=== PATIENT | male | born 1975 | race Caucasian/White ===

== ENCOUNTER 2023-09-21 14:22 | Outpatient (AMB) | payer OTHER, SELFPAY ==
--- NOTE | 2023-09-21 14:26 | MHC.PC.OV ---
Vital Signs 09/21/23 14:29 Height 6 ft 2 in Weight 227 lb BMI 29.1 BP 150/100 H Blood Pressure Location Rt brachial Position Sitting Pulse 78 Pulse Source Pulse Oximeter Pulse Oximetry (%) 98 Oxygen Delivery Method Room Air Intake Visit Reasons: New patient-Requesting physical Intake Note: Patient here to establish care and have a physical exam. he states he gets gout pretty often and also has thyroid issue that has not been taking care of in many years. Allergies No Known Allergies Allergy (Verified 09/21/23 14:57) Medication List - Last [facility] 09[facility]21/23 [facility] No Known Home Meds Tobacco use date assessed: 09/21/23 Dental Screening Dental Screen Date: 09/21/23 Did you have a dental visit in the last 12 months?: No Did you have a dental problem in the last 6 months where you did not have access to dental care?: No Was dental information given to patient?: Patient has dentist HPI New patient-Requesting physical HPI Details New pt is here for a PE. Will order labs. Due for colon screen, will refer to GI. Pt reports frequent diarrhea especially after eating x 20 years. Will have him mention this to GI. Denies any blood in stool, will have him try a fiber supplement to help bulk stools. Pt's blood pressure is elevated today. Will start losartan 25mg. Encouraged pt to monitor his blood pressure at home. Denies chest pain, shortness of breath, headache, dizziness, and blurred vision. Pt has a hx of gout. Will check uric acid. Pt reports that his last gout attack was one month ago. Will send indomethacin for prn use. [facility] Family History (Updated 09/21/23 @ 14:34 by CODY Wagner) Father Family history of mental disorder Social History Housing: House Patient Tobacco Use Status: Current someday Tobacco user e-Cigarette/Vaping Use: Never Used service: No Current occupational status: employed Current occupation: [employer] Current occupational exposures/hazards: Yes Cognitive needs: No Hearing needs: No Vision needs: No Questionnaire PHQ-9 Over the last 2 weeks, how often have you been bothered by any of the following problems? 1. Little interest or pleasure in doing things: several days 2. Feeling down, depressed, or hopeless: several days 3. Trouble falling or staying asleep, or sleeping too much: several days 4. Feeling tired or having little energy: several days 5. Poor appetite or overeating: several days 6. Feeling bad about yourself - or that you are a failure or have let yourself or your family down: several days 7. Trouble concentrating on things, such as reading the newspaper or watching television: not at all 8. Moving or speaking so slowly that other people could have noticed. Or the opposite - being so fidgety or restless that you have been moving around a lot more than usual: not at all 9. Thoughts that you would be better off or of hurting yourself in some way: not at all Total score: 6 Depression Screening Interpretation: Negative Depression Screening Done: Yes 44329 - PHQ-9 Billing: Yes Source: Developed by Drs. Dong Smith, Cesilia Roman, Weston Jones and colleagues, with an educational suzanne from [employer]. AUDIT C Alcohol Use Questionnaire (AUDIT-C) 1. How often do you have a drink containing alcohol?: 4 or more times a week 2. How many drinks containing alcohol do you have on a typical day when you are drinking?: 3 or 4 3. How often do you have six or more drinks on one occasion?: Never Total Score: 5 Score Reviewed/Action Taken: No DONNA-7 AMB Questionnaire DONNA-7 Date DONNA - 7 assessed: 09/21/23 Feeling nervous, anxious, or on edge: 0 = Not at all Not being able to stop or control worryin = Not at all Worrying too much about different things: 0 = Not at all Trouble relaxin = Several days Being so restless that it is hard to sit still: 1 = Several days Becoming easily annoyed or irritable: 2 = More than half the days Feeling afraid as if something awful might happen: 0 = Not at all Total DONNA-7 score (0-4 normal; 5-9 mild; 10-14 moderate; 15-21 severe): 4 Source: Developed by Drs. Dong Smith, Cesilia Roman, Weston Joens and colleagues, with an educational suzanne from [employer]. DONNA-7 Assessment Billing DONNA-7 Assessment Tool: DONNA-7 Assessment 55417 Review of Systems Const Denies chills and Denies fever(s) Eyes Denies blurry vision ENT Denies vertigo, Denies dizziness and Denies sore throat Card Denies chest pain at rest, Denies chest pain with activity, Denies diaphoresis, Denies dyspnea and Denies dyspnea on exertion Resp Denies cough, Denies dyspnea, Denies dyspnea on exertion and Denies wheezing GI Denies abdominal pain, Denies melena, Denies hematochezia, Denies constipation, Reports diarrhea and Reports loose stools Denies hematuria Musc Denies numbness and Denies tingling Skin/Breast Denies lesions Neuro Denies vertigo, Denies dizziness, Denies numbness and Denies tingling Psych Denies anxiety, Denies depression, Denies homicidal ideation, Denies suicidal ideation and Denies other (substance abuse) Aller/Immun Denies wheezing Physical exam (Primary Care) Vital Signs: Last Vital Signs Pulse 78 09/21/23 14:29 BP 150/100 H 09/21/23 14:29 Pulse Ox 98 09/21/23 14:29 Oxygen Delivery Method Room Air 09/21/23 14:29 BMI result Body Mass Index 29.1 Tobacco/Smoking Status: Tobacco use Status Tobacco use date assessed 09/21/23 09/21/23 14:36 Patient Tobacco Use Status Current someday Tobacco 09/21/23 14:36 e-Cigarette/Vaping Use Never Used 09/21/23 14:36 PHQ-9: PHQ-9 Score PHQ-9: Total score 6 09/21/23 16:04 Depression Screening Interpretation: Negative Const General: cooperative Nutritional Appearance: well nourished Orientation/consciousness: patient oriented x3 HENMT Head: Yes normal to inspection, Yes normocephalic and Yes atraumatic Ears: TM's normal bilaterally Eyes General: appearance normal, both eyes and all related structures Alignment and Position: alignment normal and position normal Neck Neck: Yes normal visual inspection and Yes no lymphadenopathy Thyroid: Thyroid normal Resp Effort & Inspection: normal respiratory effort Auscultation: clear to auscultation bilaterally Cardio Rate: regular rate Rhythm: regular rhythm Heart sounds: S1 normal heart sound present, S2 normal heart sound present and no murmurs GI Palpation (GI): Soft to palpation and nontender Auscultation: normal bowel sounds Male General Exam: Yes normal external exam Penis: normal penis Scrotum: scrotum normal, testes descended bilaterally and no inguinal hernias Testes: no testicular mass Skin Other: vitiligo noted to genital region Rashes: no rashes Neuro General: patient oriented x3, moves all extremities, no focal motor deficits and deep tendon reflexes 2+ bilaterally Romberg Test: Negative Psych Appearance: grossly normal Mental Status: mental status grossly normal Speech and movement: Normal speech and movement present Affect: normal affect Attitude: cooperative Thought process: Normal thought process present Thought content: Normal thought content present Insight: Good insight present (Psych) Judgement: Good judgement present (Psych) Assessment and Plan Assessment & Plan (1) Screening for colon cancer: Code(s): Z12.11 - Encounter for screening for malignant neoplasm of colon Plan: Referred to GI (2) Physical exam: Code(s): Z00.00 - Encounter for general adult medical examination without abnormal findings Plan: Labs ordered (3) Gout: Code(s): M10.9 - Gout, unspecified Plan: Uric acid ordered (4) HTN (hypertension): Code(s): I10 - Essential (primary) hypertension Plan: Starting losartan 25mg, pt to take BP at home, dropping off values in 3-5 weeks Plan The patient agreed to the use of a medical reviewer for this encounter. Scribed for ADRIANA Parrish by Kadie Bailey medical reviewer, on 09/21/2023 at 14:55 EST. Orders: Orders Complete Blood Count Auto Diff Today Z00.00 - Encounter for general adult medical examination without abnormal findings Comprehensive [place]. Panel Fast Today Z00.00 - Encounter for general adult medical examination without abnormal findings TSH reflex Free T4 Today Z00.00 - Encounter for general adult medical examination without abnormal findings Lipid Panel Today Z00.00 - Encounter for general adult medical examination without abnormal findings UA CC w/rflx Micro + Cult Today Z00.00 - Encounter for general adult medical examination without abnormal findings Uric Acid Today M10.9 - Gout, unspecified Referrals Gastroenterology Referral Z12.11 - Encounter for screening for malignant neoplasm of colon Medications: New losartan 25 mg PO DAILY 90 tabs 0RF 90 days indomethacin ER 75 mg PO BID PRN 60 caps 0RF gout attack 30 days Coding Level of Care Code New Pt Prev Care 40-64y(74802) Diagnoses Screening for colon cancer Z12.11 Physical exam Z00.00 Gout M10.9 HTN (hypertension) I10 Additional Codes DONNA-7 Assessment Billing - DONNA-7 Assessment Tool: DONNA-7 Assessment 75616 ([id number])
[2023-09-21 14:29] VITALS: BP 150/100; PULSE 78; O2SAT 98; BMI 29.1
== END 2023-09-21 15:19 | disposition home or self-care (01) ==
PROVIDERS: PCP Nurse Practitioner Family; Visit Provider Nurse Practitioner Family
DX: Z12.11 Encounter for screening for malignant neoplasm of colon (principal); Z00.00 Encounter for general adult medical examination without abnormal findings; M10.9 Gout, unspecified; I10 Essential (primary) hypertension
CPT/HCPCS: 99386

== ENCOUNTER 2023-11-21 14:34 | Outpatient (AMB) | payer OTHER, SELFPAY ==
--- NOTE | 2023-11-21 14:34 | A.OFFVIS_ITS ---
Intake Vital Signs 11/21/23 14:35 Height 6 ft 2 in Weight 224 lb 6.889 oz BMI 28.8 BP 135/88 Blood Pressure Location Rt brachial Position Sitting Pulse 97 Pulse Source Pulse Oximeter Intake Visit Reasons: Colonoscopy Screening Intake Note: Pt presents to the office today for a colonoscopy screening. Pt states he has never had a colonoscopy before. Pt states he is overall feeling well and denies any GI issues at this time except having loose stools which has been going on for many years. Allergies No Known Allergies Allergy (Verified 11/21/23 14:48) HPI Colonoscopy Screening HPI Details 48 year old? male here today for pre col onoscopy screening.? Patient was sent to us by his PCP.? This is his first colonoscopy screening.? Patient denies any gastrointestinal symptoms in the past or at present.? However patient admits to occasional postprandial loose stools. Patient reports that he has been dealing with this for over 20 years. Denies any personal or family history of gastrointestinal disease, colon polyps, or cancer.? Denies history of anesthesia in the past.? Negative for history of sleep apnea.? Denies any history of cardiac, renal, pulmonary, or hepatic disease.?? No history of infectious? diseases like hepatitis A, B, C, HIV or tuberculosis.? Patient is not on any anticoagulation therapy. PFSH Family History Father Family history of mental disorder Social History Housing: House Patient Tobacco Use Status: Current someday Tobacco user e-Cigarette/Vaping Use: Never Used service: No Current occupational status: employed Current occupation: [employer] Current occupational exposures/hazards: Yes Cognitive needs: No Hearing needs: No Vision needs: No Review of Systems Const Denies weight gain and Denies weight loss ENT Reports no additional complaints, Denies dysphagia and Denies odynophagia Card Reports no additional complaints Resp Reports no additional complaints GI Denies abdominal pain, Denies belching, Denies melena, Denies bloating, Denies change in bowel habits, Denies dysphagia, Denies excessive flatus, Denies dyspepsia, Denies heartburn, Denies diarrhea, Reports loose stools (Postprandially), Denies nausea, Denies odynophagia and Denies vomiting Reports no additional complaints Musc Reports no additional complaints Neuro Reports no additional complaints Psych Reports no additional complaints Endo Reports no additional complaints Physical Exam Vital Signs: Last Vital Signs Pulse 97 11/21/23 14:35 BP 135/88 11/21/23 14:35 BMI result Body Mass Index 28.8 Const General: healthy appearing, no acute distress and well developed Nutritional Appearance: well nourished Orientation/consciousness: patient oriented x3 Resp Effort & Inspection: normal respiratory effort, able to speak in complete sentences, no tracheal deviation and symmetric chest movement Auscultation: clear to auscultation bilaterally Cardio Rate: regular rate GI Inspection: Yes normal to inspection and No distended Palpation (GI): Soft to palpation, not firm, nontender and No hepatosplenomegaly present Auscultation: normal bowel sounds General: Yes no CVA tenderness Back/Spine/Pelvis Back: no CVA tenderness Skin General skin exam: elasticity normal, turgor normal and dry skin Neuro General: patient oriented x3 Psych Appearance: grossly normal Mental Status: mental status grossly normal Assessment & Plan Assessment & Plan (1) Screening for colon cancer: Code(s): Z12.11 - Encounter for screening for malignant neoplasm of colon (2) Postprandial diarrhea: Code(s): K52.9 - Noninfective gastroenteritis and colitis, unspecified Plan Patient denies any cardiac or respiratory symptoms.? Reports postprandial loose stools. Patient reports that he has been dealing with this for over 20 years. Patient states that he is not bothered by it. States that know better what he eats he will have a bowel movement. Discussed with him low FODMAP diet. List of food recommended as well as list of food to avoid given to patient. Patient was given option of trying of fiber to help him bulk his stools. Avoid fiber therapy 1 week before procedure. Denies any history of anesthesia in the past.? Denies any history of sleep apnea.? No history infectious diseases in the past or present.? Not on any anticoagulation therapy.? No family or personal history of colon cancer or polyps.? Patient denies melena, hematochezia, unintentional weight loss or ribbon like stools.? Discussed at length the pre-procedure,? prep, diet & medications as well as what to expect prior, during and after the procedure.?? Stressed the importance of good bowel prep. ?Recommended the use of Vaseline or Calmoseptine OTC & baby wipes with bowel movements to promote comfort.? ?Patient verbalizes understanding and agrees to plan of care.? He was given the opportunity to ask questions and all questions answered.? We will see him after the procedure.? Medications: New polyethylene glycol 3350 (Miralax) As directed by gastroenterology department at [facility] 238 grams PO ONCE 238 grams 0RF Z12.11 - Encounter for screening for malignant neoplasm of colon bisacodyl (Dulcolax (bisacodyl)) take 4 tabs at noon the day before your colonoscopy 20 mg (4 x 5 mg) PO ONCE 1 day 4 tabs 0RF Z12.11 - Encounter for screening for malignant neoplasm of colon Coding Level of Care Code New Pt Level 3 (95025) Diagnoses Screening for colon cancer Z12.11 Postprandial diarrhea K52.9 Time Spent (min) 40 Comment 40 minutes spent with patient and additional 10 minutes spent reviewing his records
[2023-11-21 14:35] VITALS: BP 135/88; PULSE 97; BMI 28.8
== END 2023-11-21 15:32 | disposition home or self-care (01) ==
PROVIDERS: PCP Nurse Practitioner Family; Referring Provider Nurse Practitioner Family; Visit Provider Nurse Practitioner Family
DX: Z12.11 Encounter for screening for malignant neoplasm of colon (principal); K52.9 Noninfective gastroenteritis and colitis, unspecified; Z01.818 Encounter for other preprocedural examination
CPT/HCPCS: 99203

== ENCOUNTER → 2023-11-21 14:34 | Outpatient (BNVA) | payer OTHER, SELFPAY | PROVIDERS: PCP Nurse Practitioner Family; Visit Provider Nurse Practitioner Family ==

== ENCOUNTER 2023-12-07 14:23 | Outpatient (AMB) | payer OTHER, SELFPAY ==
[2023-12-07 14:24] VITALS: BP 130/80; PULSE 81; O2SAT 99; BMI 29.1
--- NOTE | 2023-12-07 14:24 | A.OFFPC_ITS ---
Vital Signs 12/07/23 14:24 Height 6 ft 2 in Weight 227 lb BMI 29.1 BP 130/80 Blood Pressure Location Lt brachial Position Sitting Pulse 81 Pulse Source Pulse Oximeter Pulse Oximetry (%) 99 Oxygen Delivery Method Room Air Intake Visit Reasons: Rectal Bleeding Intake Note: pt is here for rectal bleeding, happened twice started on tuesday and patient states it was alot not just when wiping Product Introduction Manager Required: No Accompanied by: Self / Same As Patient Allergies No Known Allergies Allergy (Verified 12/07/23 18:13) Medication List - Last Reconciled 12/07/23 by ADRIANA Colvin indomethacin ER 75 mg PO BID PRN 30 days losartan 25 mg PO DAILY 90 days Tobacco use date assessed: 12/07/23 Dental Screening Dental Screen Date: 12/07/23 Did you have a dental visit in the last 12 months?: Yes Did you have a dental problem in the last 6 months where you did not have access to dental care?: No Was dental information given to patient?: Patient has dentist HPI Rectal Bleeding 2 HPI Details Pt reports rectal bleeding last Tuesday and Tuesday. He reports noticing more blood on Tuesday and a smaller amount on after a BM.. He did not have pain with defecation. Pt reports that this has resolved. He does report loose stools. Recommended citrucel. Pt has a colonoscopy scheduled for 03/14. HTN: Blood pressure is stable, managed with losartan 25mg. Encouraged pt to monitor his blood pressure at home and record readings. Denies chest pain, shortness of breath, headache, dizziness, and blurred vision. PFSH Family History Father Family history of mental disorder Social History Housing: House Patient Tobacco Use Status: Current someday Tobacco user e-Cigarette/Vaping Use: Never Used service: No Current occupational status: employed Current occupation: [employer] Current occupational exposures/hazards: Yes Cognitive needs: No Hearing needs: No Vision needs: No Questionnaire PHQ-9 Over the last 2 weeks, how often have you been bothered by any of the following problems? 1. Little interest or pleasure in doing things: several days 2. Feeling down, depressed, or hopeless: several days 3. Trouble falling or staying asleep, or sleeping too much: several days 4. Feeling tired or having little energy: several days 5. Poor appetite or overeating: several days 6. Feeling bad about yourself - or that you are a failure or have let yourself or your family down: several days 7. Trouble concentrating on things, such as reading the newspaper or watching television: not at all 8. Moving or speaking so slowly that other people could have noticed. Or the opposite - being so fidgety or restless that you have been moving around a lot more than usual: not at all 9. Thoughts that you would be better off or of hurting yourself in some way: not at all Total score: 6 Depression Screening Interpretation: Negative Depression Screening Done: Yes 65755 - PHQ-9 Billing: Yes Source: Developed by Drs. Dong Smith, Cesilia Roman, Weston Jones and colleagues, with an educational suzanne from [employer]. Thrive Questionnaire Date Thrive assessed: 12/07/23 I am a: Patient What is your living situation today?: I have a steady place to live Within the past 12 months, did the food you bought not last and you didn't have the money to get more?: Never true Within the past 12 months, did you worry whether your food would run out before you got money to buy more?: Never true Do you have trouble paying for medicines?: No Do you have trouble getting transportation to medical appointments?: No Do you have trouble paying your heating and electricity bill?: No Do you have trouble taking care of your child, family member or friend?: No Do you have trouble with day-to-day activities such as bathing, preparing meals, shopping, managing finances, etc.?: No Are you currently unemployed and looking for a job?: No Are you interested in more education?: No Please select the resources that you would like help with: None Currently or been in a relationship where the following occur: no concerns reported THRIVE Score: 0 AUDIT C Alcohol Use Questionnaire (AUDIT-C) 1. How often do you have a drink containing alcohol?: 4 or more times a week 2. How many drinks containing alcohol do you have on a typical day when you are drinking?: 3 or 4 3. How often do you have six or more drinks on one occasion?: Never Total Score: 5 Score Reviewed/Action Taken: No DONNA-7 AMB Questionnaire DONNA-7 Date DONNA - 7 assessed: 12/07/23 Feeling nervous, anxious, or on edge: 0 = Not at all Not being able to stop or control worryin = Not at all Worrying too much about different things: 0 = Not at all Trouble relaxin = Several days Being so restless that it is hard to sit still: 1 = Several days Becoming easily annoyed or irritable: 2 = More than half the days Feeling afraid as if something awful might happen: 0 = Not at all Total DONNA-7 score (0-4 normal; 5-9 mild; 10-14 moderate; 15-21 severe): 4 Source: Developed by Drs. Dong Smith, Cesilia Roman, Weston Jones and colleagues, with an educational suzanne from [employer]. DONNA-7 Assessment Billing DONNA-7 Assessment Tool: DONNA-7 Assessment 77320 Review of Systems Const Reports as per HPI Physical exam (Primary Care) Vital Signs: Last Vital Signs Pulse 81 12/07/23 14:24 BP 130/80 12/07/23 14:24 Pulse Ox 99 12/07/23 14:24 Oxygen Delivery Method Room Air 12/07/23 14:24 BMI result Body Mass Index 29.1 Tobacco/Smoking Status: Tobacco use Status Tobacco use date assessed 12/07/23 12/07/23 14:26 Patient Tobacco Use Status Current someday Tobacco 12/07/23 14:26 e-Cigarette/Vaping Use Never Used 12/07/23 14:26 PHQ-9: PHQ-9 Score PHQ-9: Total score 6 12/07/23 16:58 Depression Screening Interpretation: Negative Thrive Assessment: Date of Thrive Assessment Date Thrive assessed 12/07/23 12/07/23 14:26 Currently or been in a relationship where the following occur: no concerns reported Const General: cooperative Orientation/consciousness: patient oriented x3 GI Other: external hemorrhoid noted, otherwise no other lesions palpated or visualized, no abdominal pain with palpation Neuro General: patient oriented x3 Assessment and Plan Assessment & Plan (1) GI bleed: Code(s): K92.2 - Gastrointestinal hemorrhage, unspecified Plan The patient agreed to the use of a director of medical review for this encounter. Scribed for ADRIANA Parrish by Kadie Bailey director of medical review, on 12/07/2023 at 14:50 EST. Medications: Refilled 2 losartan 25 mg PO DAILY 90 tabs 0RF 90 days Coding Level of Care Code Est Pt Level 3 (81291) Diagnoses GI bleed K92.2 Additional Codes DONNA-7 Assessment Billing - DONNA-7 Assessment Tool: DONNA-7 Assessment 55844 ([id number])
== END 2023-12-07 15:45 | disposition home or self-care (01) ==
PROVIDERS: PCP Nurse Practitioner Family; Visit Provider Nurse Practitioner Family
DX: K92.2 Gastrointestinal hemorrhage, unspecified (principal)
CPT/HCPCS: 99213

== ENCOUNTER 2024-03-10 08:45 | Outpatient (REF) | payer OTHER, SELFPAY ==
[2024-03-10 11:04] LABS: MANUAL DIFF FLAG NO
[2024-03-10 11:15] LABS: Basophils Percent Auto 0.5 % (0-2); Eosinophils Absolute Auto 0.1 X10*3/uL (0.0-0.4); Eosinophils Percent Auto 2.2 % (0-4); Hematocrit 42.8 % (42.0-52.0); Hemoglobin 14.3 g/dl (14.0-18.0); Imm Gran Abs Auto 0.03 X10*3/uL (0.00-0.03); Imm Gran Pct Auto 0.5 % (0.0-0.4); Lymphocytes Absolute Auto 1.6 X10*3/uL (1.2-4.9); Lymphocytes Percent Auto 24.5 % (20-40); Mean Corpuscular HGB Conc 33.4 g/dl (31.0-36.0); Mean Corpuscular Hemoglobin 29.1 pg (27.0-33.0); Mean Corpuscular Volume 87.2 fL (80.0-98.0); Mean Platelet Volume 10.6 fL (9.4-12.4); Monocytes Absolute Auto 0.8 X10*3/uL (0.1-1.2); Monocytes Percent Auto 11.8 % (2-11); Neutrophils Absolute Auto 3.9 x10*3/uL (2.0-8.3); Neutrophils Percent Auto 60.5 % (45-73); Platelet Count 222 X10*3/uL (160-400); Red Blood Count 4.91 X10*6/uL (4.60-5.80); Red Cell Distribution Width 13.8 % (11.0-16.0); White Blood Count 6.4 X10*3/uL (4.8-10.8)
[2024-03-10 11:21] LABS: Appearance Urine Clear; Color Urine Yellow; Glucose Urine UA Negative (Negative); Leukocyte Esterase Urine Small (1+) (Negative); Nitrite Urine Negative (Negative); PH 6.5 (5.0-9.0); UMIC TRIGGER UACC YES; Urine Blood Negative (Negative); Urine Ketones Trace mg/dL (Negative); Urine Protein Negative (Neg-Trace)
[2024-03-10 11:29] LABS: Bacteria Urine None Seen (None Seen); Hyaline Casts Urine 0-2 /LPF (0-2); RBC Urine 0-2 /HPF (0-2); Squamous Epithelial Cell Urine 0-2 /HPF (0-2); UACC Culture Trigger YES; WBC Urine 0-5 /HPF (0-5)
[2024-03-10 11:46] LABS: Alanine Aminotransferase 31 U/L (0-40); Albumin Level 4.4 g/dL (3.5-5.0); Alkaline Phosphatase 54 U/L (39-117); Anion Gap 15 (12-20); Aspartate Amino Transferase 22 U/L (5-37); Bilirubin Total 0.6 mg/dL (0.0-1.0); Blood Urea Nitrogen 16 mg/dL (9-16); Calcium 9.1 mg/dL (8.4-10.2); Carbon Dioxide 24 mmol/L (22-29); Chloride 104 mmol/L (96-108); Cholesterol 201 mg/dL (<200); Estimated Glomerular Filt Rate > 60; Glucose Fasting 98 mg/dL (60-99); HDL Cholesterol 57 mg/dL (>40); LDL Cholesterol Calculated 93 mg/dL (<100); Potassium 4.2 mmol/L (3.3-5.1); Sodium 139 mmol/L (135-145); Total Protein 7.2 g/dL (6.5-8.0); Triglycerides 255 mg/dL (<150); Uric Acid 8.3 mg/dL (3.4-7.0)
[2024-03-10 12:10] LABS: TSH reflex Free T4 5.28 uIU/mL (0.32-4.0)
[2024-03-10 12:44] LABS: Free T4 (Free Thyroxine) 0.88 ng/dL (0.71-1.85)
== END 2024-03-10 08:46 | disposition home or self-care (01) ==
LOC: HO.HMGCLDS 08:45
PROVIDERS: PCP Nurse Practitioner Family; Visit Provider Nurse Practitioner Family
DX: Z00.00 Encounter for general adult medical examination without abnormal findings (principal); M10.9 Gout, unspecified; Z13.6 Encounter for screening for cardiovascular disorders; R82.90 Unspecified abnormal findings in urine
CPT/HCPCS: 36415; 80053; 80061; 81001; 84439; 84443; 84550; 85025; 87086

== ENCOUNTER 2024-03-14 08:13 | Day surgery (SDC) | payer OTHER, SELFPAY ==
--- NOTE | 2024-03-14 09:12 | P.CONAN_ITS ---
PMF Active Problems Active Problems: All Active Problems Elevated TSH (Acute) High triglycerides (Acute) GI bleed (Acute) HTN (hypertension) (Acute) Gout (Acute) Physical exam (Acute) Screening for colon cancer (Acute) Past Medical History Medical History Gout HTN (hypertension) Family History Family History (Reviewed 12/07/23 @ 18:14 by [facility]) Father Family history of mental disorder Family history of problems with anesthesia: No Surgical History Surgical History (Updated 03/14/24 @ 09:14 by Tiffanie Queen RN) Hx of myringotomy History of Problems with Anesthesia: No Social History Social History Housing: House Patient Tobacco Use Status: Current everyday Tobacco user Tobacco use type: Cigarette Smoked in Last 30 Days: Yes e-Cigarette/Vaping Use: Never Used Patient Interested in Nicotine Replacement: No Are you DNR?: No Advance Directives: No Advance Directives Information Provided: Yes Nutrition Risks: No Nutritional Risk service: No Current occupational status: employed Current occupation: [employer] Current occupational exposures/hazards: Yes Cognitive needs: No Hearing needs: No Vision needs: No Meds Allergies Allergy/AdvReac Type Severity Reaction Status Date / Time No Known Allergies Allergy Verified 03/14/24 09:14 Exam Airway Mallampati Class: III TM Dist: >3cm Neck ROM: Full Heart: rrr Lungs: cta Assessment and Plan Assessment Anesthesia Assessment: Anesthesia Plan Discussed and Chart Reviewed Final Anesthetic Review Family History of Problems with Anesthesia: No History of Problems with Anesthesia: No NPO: Yes ASA Class: II Final Preanesthetic Review: No Changes in Pt Med Stat, Meds/Allgs Chart Reviewed and Consent Obtained/Reviewed Patient Risk: Low Procedure Risk: Low Anesthetic Plan Anesthetic Plan: MAC: Disposition: Standard PACU
[2024-03-14 09:15] VITALS: BMI 28.5
[2024-03-14] MEDS: Lactated Ringers 1,000 ML 80 ML IVCONT (09:25)
[2024-03-14 09:29] VITALS: BP 126/80; PULSE 66; RESP 18; TEMP 36.7; O2SAT 96
--- NOTE | 2024-03-14 09:33 | MHC.SHP ---
Pre-Procedural Eval Section A - 24 Hr Update-Section A only Date of Service: 03/14/24 Section B - Complete if H&P > 30 days Chief Complaint: Encounter for screening for malignant neoplasm of Relevant Family History (Specify if Yes): No Relevant Social History: Tobacco Use Present Medications: see Short Stay Collaborative assessment Medical History: Significant History (htn, high trigs, gout, vitiligo) History of Previous Operations: No relevant previous surgery Allergies: Allergies Allergy/AdvReac Type Severity Reaction Status Date / Time No Known Allergies Allergy Verified 03/14/24 09:14 Review of Systems Sugical H&P ROS: Negative: Constitution, Cardiovascular, Respiratory, Neurological, Psychiatric, Hem-Onc, Allergic/Immunologic, Gastrointestinal, Genitourinary, Musculoskeletal, Integumentary, Endocrine and Eyes/Ears/Nose/Throat Exam Surgical H&P Exam: Normal: HEENT, Normal: Heart, Normal: Lungs, Normal: Extremities, Normal: Abdomen and Normal: Neurological and Significant Findings: Skin (depigmented areas ) Plan Diagnosis/Plan: Unchanged I have reviewed the history and physical and performed a pertinent physical examination on my patient. No changes have occurred unless specified. Time Spent With Patient Time: Total time managing care of this patient today ____ minutes.
--- NOTE | 2024-03-14 10:14 | HO.OPN-COLON ---
Colonoscopy Operative Note Operative Note Date of Service: 03/14/24 Narrative: Operative Information Procedure Description: Colonoscopy Indication: screening Anesthesia: MAC COLONOSCOPY Instrument: Olympus variable stiffness pediatric scope 190L Colonoscopy Monitoring: Vital signs and clinical assessment, continuous EKG monitoring, Pulse oximetry, Carbon Dioxide monitoring and blood pressure monitoring were done throughout the procedure. Colon withdrawal time was 14 minutes. Procedure: The patient was placed in the left lateral decubitis position and pre-procedure medications were administered. After a digital rectal examination of the ano-rectum, the video colonoscope was inserted into the rectum and advanced through the colon to the cecum/TI. The colonoscope was slowly withdrawn in a retrograde panoramic fashion and the colon mucosa was carefully examined including a retroflexed view of the rectum. Findings and interventions are described below. Procedure Difficulty: easy Findings: Terminal Ileum-normal Cecum:normal Ascending Colon: normal Transverse Colon -normal Descending Colon:normal Sigmoid Colon: 10 mm sessile polyp removed with cold snare, with 2 clips applied for hemostasis Rectum: Retroflexion with small internal hemorrhoids seen, grade I, 8-9 mm sessile polyp removed with cold snare Anorectum - normal Intervention: cold snare and clips Colon preparation: [place] Bowel Preparation Scale Right colon; 2 Transverse colon: 2 Left colon; 2 (0 = Unprepared colon segment with mucosa not seen due to solid stool that cannot be cleared. 1 = Portion of mucosa of the colon segment seen, but other areas of the colon segment not well seen due to staining, residual stool and/or opaque liquid. 2 = Minor amount of residual staining, small fragments of stool and/or opaque liquid, but mucosa of colon segment seen well. 3 = Entire mucosa of colon segment seen well with no residual staining, small fragments of stool or opaque liquid) Impression and Post Procedure Diagnosis: colon polyps internal hemorrhoids Plan: High fiber diet leaflet Avoid straining at stool, epsom salts and sitz bath, anusol supps or cream Repeat Colonoscopy in 5-7 years due to adenomatous appearing polyps or earlier if clinically indicated Above findings were reviewed with the patient and relevant handouts were provided if indicated.
[2024-03-14 10:56] VITALS: BP 112/75; PULSE 63; RESP 16; TEMP 36.2; O2SAT 100
[2024-03-14 11:11] VITALS: BP 115/76; PULSE 56; RESP 16; TEMP 36.1; O2SAT 100
== END 2024-03-14 11:50 | disposition home or self-care (01) ==
PROVIDERS: PCP Nurse Practitioner Family; Visit Provider Internal Medicine Gastroenterology
PROC: 0DJD8ZZ Inspection of Lower Intestinal Tract, Via Natural or Artificial Opening Endoscopic (ICD-10-PCS; CPT 45378; principal; 2024-03-14 10:40)
DX: Z12.11 Encounter for screening for malignant neoplasm of colon (principal); D12.5 Benign neoplasm of sigmoid colon; K62.1 Rectal polyp; K64.8 Other hemorrhoids; I10 Essential (primary) hypertension; F17.210 Nicotine dependence, cigarettes, uncomplicated
CPT/HCPCS: 45385; 88305; J2704

== ENCOUNTER → 2024-03-14 08:13 | Outpatient (BNV) | payer OTHER, SELFPAY | PROVIDERS: PCP Nurse Practitioner Family; Visit Provider Internal Medicine Gastroenterology | DX: Z12.11 Encounter for screening for malignant neoplasm of colon (principal); D12.5 Benign neoplasm of sigmoid colon; K62.1 Rectal polyp; K64.0 First degree hemorrhoids | CPT/HCPCS: 45385 ==

== ENCOUNTER 2024-03-22 14:52 | Outpatient (AMB) | payer OTHER, SELFPAY ==
--- NOTE | 2024-03-22 14:57 | MHC.PC.OV ---
Vital Signs 03/22/24 14:59 Height 6 ft 2 in Weight 227 lb BMI 29.1 BP 120/86 Blood Pressure Location Rt brachial Position Sitting Pulse 76 Pulse Source Pulse Oximeter Pulse Oximetry (%) 98 Oxygen Delivery Method Room Air Intake Visit Reasons: EP 6 Month F/U Intake Note: Patient here to f/u GI bleed Allergies No Known Allergies Allergy (Verified 03/22/24 15:27) Medication List - Last Reconciled 03/22/24 by ADRIANA Colvin allopurinol 100 mg PO DAILY losartan 25 mg PO DAILY 90 days Tobacco use date assessed: 12/07/23 Dental Screening Dental Screen Date: 12/07/23 HPI EP 6 Month F/U HPI Details Pt c/o body aches. He reports that these started approximately 2 months ago. 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 Will order labs. Pt also has a hx of elevated TSH. Will repeat. Denies fatigue, constipation, and cold intolerance. Pt also has a hx of gout. He is on allopurinol. He uses indomethacin for acute flares though he has not had one recently. Will recheck uric acid. [facility] Medical History Gout HTN (hypertension) Surgical History Hx of myringotomy Family History Father Family history of mental disorder Social History Housing: House Patient Tobacco Use Status: Current everyday Tobacco user Tobacco use type: Cigarette e-Cigarette/Vaping Use: Never Used service: No Current occupational status: employed Current occupation: [employer] Current occupational exposures/hazards: Yes Cognitive needs: No Hearing needs: No Vision needs: No Questionnaire Thrive Questionnaire Date Thrive assessed: 12/07/23 DONNA-7 AMB Questionnaire DONNA-7 Date DONNA - 7 assessed: 12/07/23 Source: Developed by Drs. Dong Smith, Cesilia Roman, Weston Jones and colleagues, with an educational suzanne from [employer] Review of Systems Const Reports as per HPI Physical exam (Primary Care) Vital Signs: Last Vital Signs Pulse 76 03/22/24 14:59 BP 120/86 03/22/24 14:59 Pulse Ox 98 03/22/24 14:59 Oxygen Delivery Method Room Air 03/22/24 14:59 BMI result Body Mass Index 29.1 Tobacco/Smoking Status: Tobacco use Status Tobacco use date assessed 12/07/23 03/22/24 14:57 Patient Tobacco Use Status Current everyday Tobacco 03/22/24 14:57 Tobacco use type Cigarette 03/22/24 14:57 e-Cigarette/Vaping Use Never Used 03/22/24 14:57 Thrive Assessment: Date of Thrive Assessment Date Thrive assessed 12/07/23 03/22/24 14:57 Const General: cooperative Orientation/consciousness: patient oriented x3 Resp Auscultation: clear to auscultation bilaterally Cardio Rate: regular rate Rhythm: regular rhythm Heart sounds: S1 normal heart sound present and S2 normal heart sound present Neuro General: patient oriented x3 Psych Appearance: grossly normal Mental Status: mental status grossly normal Speech and movement: Normal speech and movement present Affect: normal affect Attitude: cooperative Thought process: Normal thought process present Thought content: Normal thought content present Insight: Good insight present (Psych) Judgement: Good judgement present (Psych) Assessment and Plan Assessment & Plan (1) Body aches: Code(s): R52 - Pain, unspecified Plan: Labs ordered (2) Body aches: Code(s): R52 - Pain, unspecified Plan: Labs ordered (3) Elevated TSH: Code(s): R79.89 - Other specified abnormal findings of blood chemistry Plan: Labs ordered (4) Gout: Code(s): M10.9 - Gout, unspecified Plan: Uric acid ordered Plan The patient agreed to the use of a medical technologist for this encounter. Scribed for ADRIANA Parrish by Kadie Bailey medical technologist, on 03/22/2024 at 15:05 EST. Orders: Orders Cyclic Citrullinated Peptide Today R52 - Pain, unspecified Tick-borne Disease Molecular Today R52 - Pain, unspecified C Reactive Protein Today R52 - Pain, unspecified Ferritin Today R52 - Pain, unspecified IRON PROFILE Today R52 - Pain, unspecified Rheumatoid Factor Today R52 - Pain, unspecified BAMBI Reflex Titer and Pattern Today R52 - Pain, unspecified Sjogren's Antibodies Today R52 - Pain, unspecified Anti DNA DS Antibody Today R52 - Pain, unspecified DNA Double Stranded-Crithidia Today R52 - Pain, unspecified Erythrocyte Sedimentation Rate Today R52 - Pain, unspecified Uric Acid Today R52 - Pain, unspecified Creatine Kinase Total Today R52 - Pain, unspecified Coding Level of Care Code Est Pt Level 3 (74298) Diagnoses Body aches R52 Elevated TSH R79.89 Gout M10.9
[2024-03-22 14:59] VITALS: BP 120/86; PULSE 76; O2SAT 98; BMI 29.1
== END 2024-03-22 15:57 | disposition home or self-care (01) ==
PROVIDERS: PCP Nurse Practitioner Family; Visit Provider Nurse Practitioner Family
DX: R52 Pain, unspecified (principal); R79.89 Other specified abnormal findings of blood chemistry; M10.9 Gout, unspecified
CPT/HCPCS: 99213

== ENCOUNTER 2024-03-28 15:27 | Outpatient (AMB) | payer OTHER, SELFPAY ==
--- NOTE | 2024-03-28 15:30 | A.OFFVIS_ITS ---
Vital Signs 03/28/24 15:34 Height 6 ft 2 in Weight 228 lb 6.382 oz BMI 29.3 BP 124/82 Blood Pressure Location Rt brachial Position Sitting Pulse 80 Pulse Source Pulse Oximeter Pulse Oximetry (%) 98 Oxygen Delivery Method Room Air Intake Visit Reasons: s/p colon Intake Note: Monica presents in office today for a scheduled post op FUV (colo) CC; Pt denies any noticeable complications post op. Pt is here strictly to discuss results of s/p. Clerical And Administrative Workers Required: No Allergies No Known Allergies Allergy (Verified 03/28/24 15:34) HPI HPI s/p colon: Details: LAST VISIT: Screening for colon cancer Postprandial diarrhea Plan Patient denies any cardiac or respiratory symptoms.? Reports postprandial loose stools. Patient reports that he has been dealing with this for over 20 years. Patient states that he is not bothered by it. States that know better what he eats he will have a bowel movement. Discussed with him low FODMAP diet. List of food recommended as well as list of food to avoid given to patient. Patient was given option of trying of fiber to help him bulk his stools. Avoid fiber therapy 1 week before procedure. Denies any history of anesthesia in the past.? Denies any history of sleep apnea.? No history infectious diseases in the past or present.? Not on any anticoagulation therapy.? No family or personal history of colon cancer or polyps.? Patient denies melena, hematochezia, unintentional weight loss or ribbon like stools.? Discussed at length the pre-procedure,? prep, diet & medications as well as what to expect prior, during and after the procedure.?? Stressed the importance of good bowel prep. ?Recommended the use of Vaseline or Calmoseptine OTC & baby wipes with bowel movements to promote comfort.? ?Patient verbalizes understanding and agrees to plan of care.? He was given the opportunity to ask questions and all questions answered.? We will see him after the procedure.? Medications New polyethylene glycol 3350 (Miralax) As directed by gastroenterology department at [facility] 238 grams PO ONCE 238 grams 0RF Z12.11 bisacodyl (Dulcolax (bisacodyl)) take 4 tabs at noon the day before your colonoscopy 20 mg (4 x 5 mg) PO ONCE 1 day 4 tabs 0RF Z12.11 COLONOSCOPY SCREEN: Findings: Terminal Ileum-normal Cecum:normal Ascending Colon: normal Transverse Colon -normal Descending Colon:normal Sigmoid Colon: 10 mm sessile polyp removed with cold snare, with 2 clips applied for hemostasis Rectum: Retroflexion with small internal hemorrhoids seen, grade I, 8-9 mm sessile polyp removed with cold snare Anorectum - normal Intervention: cold snare and clips Colon preparation: [place] Bowel Preparation Scale Right colon; 2 Transverse colon: 2 Left colon; 2 (0 = Unprepared colon segment with mucosa not seen due to solid stool that cannot be cleared. 1 = Portion of mucosa of the colon segment seen, but other areas of the colon segment not well seen due to staining, residual stool and/or opaque liquid. 2 = Minor amount of residual staining, small fragments of stool and/or opaque liquid, but mucosa of colon segment seen well. 3 = Entire mucosa of colon segment seen well with no residual staining, small fragments of stool or opaque liquid) Impression and Post Procedure Diagnosis: colon polyps internal hemorrhoids Plan: High fiber diet leaflet Avoid straining at stool, epsom salts and sitz bath, anusol supps or cream Repeat Colonoscopy in 5-7 years due to adenomatous appearing polyps or earlier if clinically indicated PATHOLOGY Diagnosis A. Colon, sigmoid, polyp: Tubular adenoma, appears excised; negative for high- grade dysplasia and carcinoma. B. Colon, rectal polyp: Hyperplastic polyp TODAY'S VISIT Patient is here today for follow-up and to discuss colonoscopy results. Patient denies any ill effects from the prep, anesthesia or procedure itself. Patient reports that he has been doing fairly well. Patient denies any melena, hematochezia. Reports that he is moving his bowels well. Occasional postprandial loose stools, however nothing that he has not been dealing with in the past. One tubular adenoma found in sigmoid colon without high-grade dysplasia or carcinoma. Other polyp found in rectum was hyperplastic. Normal colon without diverticulosis. Internal hemorrhoids found. Patient denies any family history of colorectal cancer. PFSH Medical History (Updated 04/05/24 @ 20:26 by Harriet Cosme [facility]) Tubular adenoma of colon GI bleed Gout HTN (hypertension) Surgical History Hx of colonoscopy Hx of myringotomy Family History Father Family history of mental disorder Social History Housing: House Patient Tobacco Use Status: Current everyday Tobacco user Tobacco use type: Cigarette e-Cigarette/Vaping Use: Never Used service: No Current occupational status: employed Current occupation: [employer] Current occupational exposures/hazards: Yes Cognitive needs: No Hearing needs: No Vision needs: No Review of Systems Const Denies weight gain and Denies weight loss ENT Reports no additional complaints, Denies dysphagia and Denies odynophagia Card Reports no additional complaints Resp Reports no additional complaints GI Denies abdominal pain, Denies belching, Denies melena, Denies bloating, Denies change in bowel habits, Denies dysphagia, Denies excessive flatus, Denies dyspepsia, Denies heartburn, Denies diarrhea, Denies loose stools, Denies nausea, Denies odynophagia and Denies vomiting Reports no additional complaints Musc Reports no additional complaints Neuro Reports no additional complaints Psych Reports no additional complaints Endo Reports no additional complaints Physical Exam Vital Signs: Last Vital Signs Pulse 80 03/28/24 15:34 BP 124/82 03/28/24 15:34 Pulse Ox 98 03/28/24 15:34 Oxygen Delivery Method Room Air 03/28/24 15:34 BMI result Body Mass Index 29.3 Const General: healthy appearing, no acute distress and well developed Nutritional Appearance: well nourished Orientation/consciousness: patient oriented x3 Resp Effort & Inspection: normal respiratory effort, able to speak in complete sentences, no tracheal deviation and symmetric chest movement Auscultation: clear to auscultation bilaterally Cardio Rate: regular rate GI Inspection: Yes normal to inspection and No distended Palpation (GI): Soft to palpation, not firm, nontender and No hepatosplenomegaly present Auscultation: normal bowel sounds General: Yes no CVA tenderness Back/Spine/Pelvis Back: no CVA tenderness Skin General skin exam: elasticity normal, turgor normal and dry skin Neuro General: patient oriented x3 Psych Appearance: grossly normal Mental Status: mental status grossly normal Assessment & Plan Assessment & Plan (1) Tubular adenoma of colon: Code(s): D12.6 - Benign neoplasm of colon, unspecified Category: Medical (2) Status post colonoscopy: Code(s): Z98.890 - Other specified postprocedural states Plan Tubular adenoma without high-grade dysplasia found, colo rectal screening in 5 years, sooner if clinically necessary. Patient denies any GI concerning symptoms. Denies any dyspepsia, dysphagia or odynophagia. Continue avoiding dietary trigger is due to postprandial loose stools occasionally. Patient will follow-up in the office on as needed basis. He will call if he will have any GI concerning symptoms. He is agreeable to this plan and verbalizes understanding of instructions. She was given the opportunity to ask questions and all questions answered. Thank you for allowing me to participate in his care Coding Level of Care Code Est Pt Level 3 (99251) Diagnoses Tubular adenoma of colon D12.6 Status post colonoscopy Z98.890 Time Spent (min) 25 Comment 15 minutes spent with patient and additional 10 minutes spent reviewing his records
[2024-03-28 15:34] VITALS: BP 124/82; PULSE 80; O2SAT 98; BMI 29.3
== END 2024-03-28 16:05 | disposition home or self-care (01) ==
PROVIDERS: PCP Nurse Practitioner Family; Visit Provider Nurse Practitioner Family
DX: D12.6 Benign neoplasm of colon, unspecified (principal); Z98.890 Other specified postprocedural states
CPT/HCPCS: 99213

== ENCOUNTER → 2024-03-28 15:27 | Outpatient (BNVA) | payer OTHER, SELFPAY | PROVIDERS: PCP Nurse Practitioner Family; Visit Provider Nurse Practitioner Family ==

== ENCOUNTER 2024-09-24 13:35 | Outpatient (AMB) | payer OTHER, SELFPAY ==
[2024-09-24 13:41] VITALS: BP 136/82; PULSE 89; O2SAT 98; BMI 29.9
--- NOTE | 2024-09-24 13:41 | A.OFFPC_ITS ---
Vital Signs 09/24/24 13:41 Height 6 ft 2 in Weight 233 lb BMI 29.9 BP 136/82 Blood Pressure Location Rt brachial Position Sitting Pulse 89 Pulse Source Pulse Oximeter Pulse Oximetry (%) 98 Intake Visit Reasons: Annual PE Intake Note: pt is here for PE Allergies No Known Allergies Allergy (Verified 09/24/24 14:23) Medication List - Last Reconciled 09/24/24 by ADRIANA Colvin allopurinol 100 mg PO DAILY losartan 25 mg PO DAILY 90 days Tobacco use date assessed: 12/07/23 Dental Screening Dental Screen Date: 12/07/23 HPI HPI Comments History of Present Illness Details Pt is here for a PE. colon screen is up to date. ongoing bilat shoulder pain, i received cortisone shots in the past, they worked for like 6 years . Will refer to ortho. XRs ordered [facility] Medical History Tubular adenoma of colon GI bleed Gout HTN (hypertension) Surgical History Hx of colonoscopy Hx of myringotomy Family History Father Family history of mental disorder Social History Housing: House Patient Tobacco Use Status: Current everyday Tobacco user Tobacco use type: Cigarette e-Cigarette/Vaping Use: Never Used service: No Current occupational status: employed Current occupation: [employer] Current occupational exposures/hazards: Yes Cognitive needs: No Hearing needs: No Vision needs: No Questionnaire PHQ-9 Over the last 2 weeks, how often have you been bothered by any of the following problems? 1. Little interest or pleasure in doing things: not at all 2. Feeling down, depressed, or hopeless: not at all 3. Trouble falling or staying asleep, or sleeping too much: not at all 4. Feeling tired or having little energy: not at all 5. Poor appetite or overeating: not at all 6. Feeling bad about yourself - or that you are a failure or have let yourself or your family down: not at all 7. Trouble concentrating on things, such as reading the newspaper or watching television: not at all 8. Moving or speaking so slowly that other people could have noticed. Or the opposite - being so fidgety or restless that you have been moving around a lot more than usual: not at all 9. Thoughts that you would be better off or of hurting yourself in some way: not at all Total score: 0 Depression Screening Interpretation: Negative Depression Screening Done: Yes 55647 - PHQ-9 Billing: Yes Source: Developed by Drs. Dong Smith, Cesilia Roman, Weston Jones and colleagues, with an educational suzanne from [employer]. Thrive Questionnaire Date Thrive assessed: 09/24/24 I am a: Patient What is your living situation today?: I have a steady place to live Within the past 12 months, did the food you bought not last and you didn't have the money to get more?: Never true Within the past 12 months, did you worry whether your food would run out before you got money to buy more?: Never true Do you have trouble paying for medicines?: No Do you have trouble getting transportation to medical appointments?: No Do you have trouble paying your heating and electricity bill?: No Do you have trouble taking care of your child, family member or friend?: No Do you have trouble with day-to-day activities such as bathing, preparing meals, shopping, managing finances, etc.?: No Are you currently unemployed and looking for a job?: No Are you interested in more education?: No Please select the resources that you would like help with: None Currently or been in a relationship where the following occur: I choose not to answer THRIVE Score: 0 AUDIT C Alcohol Use Questionnaire (AUDIT-C) 1. How often do you have a drink containing alcohol?: 2-3 times a week 2. How many drinks containing alcohol do you have on a typical day when you are drinking?: 3 or 4 3. How often do you have six or more drinks on one occasion?: Weekly Total Score: 7 Score Reviewed/Action Taken: Yes DONNA-7 AMB Questionnaire DONNA-7 Date DONNA - 7 assessed: 09/24/24 Feeling nervous, anxious, or on edge: 0 = Not at all Not being able to stop or control worryin = Not at all Worrying too much about different things: 0 = Not at all Trouble relaxin = Not at all Being so restless that it is hard to sit still: 0 = Not at all Becoming easily annoyed or irritable: 0 = Not at all Feeling afraid as if something awful might happen: 0 = Not at all Total DONNA-7 score (0-4 normal; 5-9 mild; 10-14 moderate; 15-21 severe): 0 Source: Developed by Drs. Dong Smith, Cesilia Roman, Weston Jones and colleagues, with an educational suzanne from [employer]. DONNA-7 Assessment Billing DONNA-7 Assessment Tool: DONNA-7 Assessment 06682 Review of Systems Const Denies chills and Denies fever(s) Eyes Denies blurry vision ENT Denies vertigo, Denies dizziness and Denies sore throat Card Denies chest pain at rest, Denies chest pain with activity, Denies diaphoresis, Denies dyspnea and Denies dyspnea on exertion Resp Denies cough, Denies dyspnea, Denies dyspnea on exertion and Denies wheezing GI Denies abdominal pain, Denies melena, Denies hematochezia, Denies constipation, Denies diarrhea and Denies loose stools Denies hematuria Musc Denies numbness and Denies tingling Skin/Breast Denies lesions Neuro Denies vertigo, Denies dizziness, Denies numbness and Denies tingling Psych Denies anxiety, Denies depression, Denies homicidal ideation, Denies suicidal ideation and Denies other (substance abuse) Aller/Immun Denies wheezing Physical exam (Primary Care) Vital Signs: Last Vital Signs Pulse 89 09/24/24 13:41 BP 136/82 09/24/24 13:41 Pulse Ox 98 09/24/24 13:41 BMI result Body Mass Index 29.9 Tobacco/Smoking Status: Tobacco use Status Tobacco use date assessed 12/07/23 09/24/24 13:42 Patient Tobacco Use Status Current everyday Tobacco 09/24/24 13:42 Tobacco use type Cigarette 09/24/24 13:42 e-Cigarette/Vaping Use Never Used 09/24/24 13:42 PHQ-9: PHQ-9 Score PHQ-9: Total score 0 09/24/24 13:42 Depression Screening Interpretation: Negative Thrive Assessment: Date of Thrive Assessment Date Thrive assessed 09/24/24 09/24/24 13:42 Currently or been in a relationship where the following occur: I choose not to answer Const General: cooperative Nutritional Appearance: well nourished Orientation/consciousness: patient oriented x3 HENMT Head: Yes normal to inspection, Yes normocephalic and Yes atraumatic Ears: TM normal on the right and TM normal on the left Eyes General: appearance normal, both eyes and all related structures Alignment and Position: alignment normal and position normal Neck Neck: Yes normal visual inspection, Yes no lymphadenopathy and Yes supple Resp Effort & Inspection: normal respiratory effort Auscultation: clear to auscultation bilaterally Cardio Rate: regular rate Rhythm: regular rhythm Heart sounds: S1 normal heart sound present, S2 normal heart sound present and no murmurs GI Palpation (GI): Soft to palpation and nontender Auscultation: normal bowel sounds Male General Exam: Yes normal external exam Penis: normal penis Scrotum: scrotum normal, testes descended bilaterally and no inguinal hernias Testes: no testicular mass Skin Other: Vitiliago noted (scattered) Neuro General: patient oriented x3, moves all extremities, no focal motor deficits and deep tendon reflexes 2+ bilaterally Romberg Test: Negative Extrem Right lower extremity: no edema Left lower extremity: no edema Psych Affect: normal affect Attitude: cooperative Thought process: Normal thought process present Coding Level of Care Code Est Pt Prev Care 40-64y(97457) Diagnoses Screening for prostate cancer Z12.5 Bilateral shoulder pain M25.511; M25.512 Smoker F17.200 Physical exam Z00.00 Additional Codes DONNA-7 Assessment Billing - DONNA-7 Assessment Tool: DONNA-7 Assessment 17439 ([id number]) PHQ-9 - 34641 - PHQ-9 Billing: Yes ([id number]) Assessment & Plan Assessment & Plan (1) Screening for prostate cancer: Code(s): Z12.5 - Encounter for screening for malignant neoplasm of prostate Category: Medical (2) Bilateral shoulder pain: Code(s): M25.511 - Pain in right shoulder; M25.512 - Pain in left shoulder Category: Medical Plan: referred to ortho (3) Smoker: Code(s): F17.200 - Nicotine dependence, unspecified, uncomplicated Category: Social Hx Plan: referred to lung screen program (4) Physical exam: Code(s): Z00.00 - Encounter for general adult medical examination without abnormal findings Category: Medical Plan: encouraged to get labs Plan . Orders: Orders Prostate Specific Antigen Scr Today Z12.5 - Encounter for screening for malignant neoplasm of prostate XR shoulder RT min 2V Today M25.511 - Pain in right shoulder, M25.512 - Pain in left shoulder XR shoulder LT min 2V Today M25.511 - Pain in right shoulder, M25.512 - Pain in left shoulder Referrals Orthopedics Referral M25.511 - Pain in right shoulder, M25.512 - Pain in left shoulder Lung Cancer Screening Referral F17.200 - Nicotine dependence, unspecified, uncomplicated Medications: Refilled losartan 25 mg PO DAILY 90 days 90 tabs 1RF allopurinol 100 mg PO DAILY 90 tabs 1RF
== END 2024-09-24 14:47 | disposition home or self-care (01) ==
PROVIDERS: PCP Nurse Practitioner Family; Visit Provider Nurse Practitioner Family
DX: Z12.5 Encounter for screening for malignant neoplasm of prostate (principal); M25.511 Pain in right shoulder; M25.512 Pain in left shoulder; F17.200 Nicotine dependence, unspecified, uncomplicated; Z00.00 Encounter for general adult medical examination without abnormal findings

== ENCOUNTER → 2024-09-24 13:35 | Outpatient (BNVA) | payer OTHER, SELFPAY | PROVIDERS: PCP Nurse Practitioner Family; Visit Provider Nurse Practitioner Family | DX: Z00.00 Encounter for general adult medical examination without abnormal findings (principal); M25.511 Pain in right shoulder; M25.512 Pain in left shoulder; F17.210 Nicotine dependence, cigarettes, uncomplicated | CPT/HCPCS: 96127 ==

== ENCOUNTER 2024-10-31 14:48 | Outpatient (AMB) | payer OTHER, SELFPAY ==
[2024-10-31 15:16] VITALS: BMI 29.9
--- NOTE | 2024-10-31 15:16 | A.OFFVIS_ITS ---
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 Patient reports his pain has been present for years and has a history of cortisone injections with the last one being about 3 years ago. His pain returned about 6 months ago and he is requesting cortisone injections today. His right shoulder is usually the worse however with over compensation his shoulder pain are equal in both shoulders. Limited ROM. He has difficulty with sleeping. 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 Denies injury. 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 He has had injections in the past which were significantly helpful. No other treatment to date. [facility] Medical History Tubular adenoma of colon GI bleed Gout HTN (hypertension) Surgical History Hx of colonoscopy Hx of myringotomy Family History Father Family history of mental disorder Social History (Updated 10/31/24 @ 15:25 by JEANNE Reynaga) Housing: House Patient Tobacco Use Status: Current everyday Tobacco user Tobacco use type: Cigarette e-Cigarette/Vaping Use: Never Used service: No Current occupational status: employed Current occupation: [employer], right hand dominant Current occupational exposures/hazards: Yes Cognitive needs: No Hearing needs: No Vision needs: No Review of Systems Const All systems reviewed & are unremarkable except as noted in HPI and below Physical Exam Vital Signs: BMI result Body Mass Index 29.9 Const General: cooperative and no acute distress Orientation/consciousness: patient oriented x3 Resp Effort & Inspection: normal respiratory effort and able to speak in complete sentences Cardio Peripheral pulses: Peripheral pulses 2+ throughout Neuro General: patient oriented x3 Extrem Other: Bilateral shoulders normal to inspection. He has full range of motion in all planes. 5/5 rotator cuff strength with mild discomfort. He has a positive Wisdom on the right. Neurovascularly intact. Office Procedures AMB Joint Injection/Aspiration Joint Injection/Aspiration Primary Site: right shoulder Secondary Site: left shoulder Prep: site was prepped using aseptic technique, ethochloride spray was applied and injection warnings given Injected: 80 mg of (each shoulder), DepoMedrol, with 8 mL of, 1% plain lidocaine and in the subcromial space Approach Used: posterolateral Procedure: The patient tolerated the procedure well and there was some relief with the local anesthesia Coding 94590 - Glenohumeral/Tronchanteric Bursa/Intraarticular Procedure code (CPT) selection complete Results Reviewed Results Reviewed: X-rays of bilateral shoulders obtained in the office today and reviewed by me show type 2 acromion. Assessment & Plan Assessment & Plan (1) Tendinitis of both shoulders: Code(s): M77.8 - Other enthesopathies, not elsewhere classified Category: Medical Plan We discussed options today which include a steroid injection. He did consent to proceed with bilateral shoulder injection which she tolerated well. I also discussed activity modification. We also discussed the benefits of physical therapy to work on rotator cuff and periscapular stabilization which she will hold off on at this time. If symptoms persist or worsen he will contact our office otherwise follow up as needed. Orders: Orders XR shoulder LT min 2V Today M25.512 - Pain in left shoulder XR shoulder RT min 2V Today M25.511 - Pain in right shoulder Coding Level of Care Code New Pt Level 3 (55385) Complex EM visit Add On G2211 Diagnoses Tendinitis of both shoulders M77.8 CPT Codes Coding - Joint 7: 86142 - Glenohumeral/Tronchanteric Bursa/Intraarticular ([id number])
== END 2024-10-31 15:57 | disposition home or self-care (01) ==
PROVIDERS: PCP Nurse Practitioner Family; Visit Provider Physician Assistant
DX: M77.8 Other enthesopathies, not elsewhere classified (principal)
CPT/HCPCS: 20610; 99203

== ENCOUNTER 2024-10-31 14:48 | Outpatient (REF) | payer OTHER, SELFPAY ==
--- NOTE | ~2024-10-31 | XR_ITS ---
CLINICAL HISTORY: M25.511 - Pain in right shoulder 3 view right shoulder Comparison: None Findings: No fractures or dislocations. No significant loss of joint space or osteophytes. No erosions. No radiopaque foreign body. IMPRESSION: 1. No acute findings This document has been electronically signed by: Arnulfo Schneider MD on 11/02/2024 07:58:16
--- NOTE | ~2024-10-31 | XR_ITS ---
CLINICAL HISTORY: M25.512 - Pain in left shoulder 3 view left shoulder Comparison: None Findings: Bones intact. No dislocations. No significant loss of joint space or osteophytes. No erosions. No radiopaque foreign body. IMPRESSION: 1. No acute findings This document has been electronically signed by: Arnulfo Schneider MD on 11/02/2024 07:59:07
== END 2024-10-31 14:49 | disposition home or self-care (01) ==
LOC: HO.HOSX 14:48
PROVIDERS: PCP Nurse Practitioner Family; Visit Provider Physician Assistant
DX: M25.511 Pain in right shoulder (principal); M25.512 Pain in left shoulder; M77.8 Other enthesopathies, not elsewhere classified
CPT/HCPCS: 20610; 73030; J1010; J2003

== ENCOUNTER → 2024-10-31 15:15 | Outpatient (BNV) | payer OTHER, SELFPAY | PROVIDERS: PCP Nurse Practitioner Family; Visit Provider Specialist | DX: M25.512 Pain in left shoulder (principal); M25.511 Pain in right shoulder | CPT/HCPCS: 73030 ==

== ENCOUNTER 2024-12-14 11:02 | Outpatient (AMB) | payer OTHER, SELFPAY ==
--- NOTE | 2024-12-14 08:01 | MHC.OFFVIS ---
Intake Visit Reasons: Current Smoker Allergies No Known Allergies Allergy (Verified 10/31/24 15:25) HPI HPI Current Smoker: Details: Initial visit for this 49yo smoker with a 30+PYH. Patient started smoking at age 11 for 38 years at 1ppd. Recently quit 09/2024 and is now using vape. . Denies marijuana use. Denies second hand smoke exposure. 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 . Reports family history of lung cancer. Maternal grandmother. Denies personal history of cancers. Denies chest CT in last year. . Denies recent travel outside the [place]. Denies recent respiratory illness or recent hospitalization for respiratory issues. Denies testing positive for COVID. Admits receiving COVID Vaccine. . Denies fever, chills, new/worsening cough, hemoptysis, hoarseness or dysphagia. Denies significant chest pain, significant dyspnea or unintentional weight loss. Patient Lung Cancer Screening Questionnaire reviewed with patient by provider. . Shared Decision Making Completed. Patient meets criteria. Discussed in detail with patient, the risk vs benefit of LDCT screening. Patient consents to proceed with scan. Discussed smoking cessation. [facility] Medical History (Updated 12/14/24 @ 11:17 by Deonna Gutierrez PA-C) Elevated TSH High triglycerides Tendinitis of both shoulders Nicotine dependence, cigarettes, uncomplicated Tubular adenoma of colon GI bleed Gout HTN (hypertension) Surgical History (Updated 11/12/24 @ 14:13 by Deonna Gutierrez PA-C) History of colonoscopy Hx of myringotomy Family History Father Family history of mental disorder Social History (Updated 12/14/24 @ 11:17 by Deonna Gutierrez PA-C) Housing: House Patient Tobacco Use Status: Former Tobacco user Tobacco use type: Cigarette Years Smoked: (onset 11yo, 1ppd x 38yrs, 30+PYH, quit 09/2024 -now vape) e-Cigarette/Vaping Use: Never Used service: No Current occupational status: employed Current occupation: [employer], right hand dominant Current occupational exposures/hazards: Yes Cognitive needs: No Hearing needs: No Vision needs: No Assessment & Plan Assessment & Plan (1) Nicotine dependence, cigarettes, uncomplicated: Comment: (onset 11yo, 1ppd x 38yrs, 30+PYH, quit 09/2024 -now vape) Code(s): F17.210 - Nicotine dependence, cigarettes, uncomplicated Category: Medical Plan: - SDM visit completed today in office. - Patient meets criteria for LDCT for lung cancer screening purposes and is asymptomatic. - Smoking cessation counseling offered. Patients can always call [phone]. - Will arrange for a LDCT scan of the chest for screening purposes at [facility]. - Risks, benefits, and alternatives were discussed in detail and the patient agrees to proceed. - Risks discussed include but are not limited to: radiation exposure, anxiety during testing and while awaiting results, false negatives, false positives and possibility of additional intervention such as further imaging or surgical procedures for benign disease. - Benefits are obviously detection of lung cancer at an early stage which can lead to improved outcomes. - Discussed the importance of screening program compliance with adherence to yearly LDCT scan as scheduled - or sooner interval scans for personalized screening regimen. - Discussed follow up plan. Our office will send a letter discussing results and if needed set up phone call and office visit based on CT findings. - Patient educated on results categorization and the management decisions for suspicious findings potentially found on the screening LDCT scan. Any patient with a Lung RADS score of 3 or 4 will be reviewed by a multidisciplinary team at [facility] to form a plan of action in regards to scan findings. - If further work up is warranted for a suspicious lung finding this will be followed by the Lung Cancer Screening program in conjunction with the Thoracic Surgery Department at [facility]. - A copy of the office note and LDCT will be sent to the patient's PCP - as well as documentation on any associated further plans of care. - Incidental findings on LDCT are the PCP's responsibility. These findings are indicated with an S finding on the LDCT Assessment. A note discussing the findings will be sent to the PCP who is then responsible for further management. - All questions answered.? Coding Level of Care Code Lung Cancer Screening G0296 Diagnoses Nicotine dependence, cigarettes, uncomplicated F17.210
== END 2024-12-14 13:04 | disposition home or self-care (01) ==
PROVIDERS: PCP Nurse Practitioner Family; Visit Provider Physician Assistant Medical
DX: F17.210 Nicotine dependence, cigarettes, uncomplicated (principal)
CPT/HCPCS: G0296

== ENCOUNTER 2024-12-14 11:17 | Outpatient (REF) | payer OTHER, SELFPAY ==
--- NOTE | ~2024-12-14 | CT_ITS ---
CLINICAL HISTORY: F17.210 - Nicotine dependence, cigarettes, uncomplicated CT lung cancer screening (LDCT) Comparison: None Technique: Axial CT images of the chest using low-dose technique. Referring provider counseled the patient on shared decision-making for LDCT screening. Additional counseling was provided on smoking cessation. Effective radiation dose total: DLP 52.9 mGycm, CTDIvol 1.5 mGy. Findings: Lung: There is a solid/semi solid left upper lobe lesion with the solid component measuring 0.9 x 0.4 cm. There are 2 smaller lesions having similar appearance in the right upper and left lower lobes. No other solid or semi solid lesions Coronary artery calcifications: none Limited upper abdomen: Unremarkable Other: None Impression: Category 3: Probably benign, six-month CT recommended Category 1: Normal; continue annual screening Category 2: Benign appearance or behavior, continue annual screening Category 3: Probably benign, [address] recommended Category 4A: Suspicious, [address] recommended; may consider PET/CT Category 4B: Suspicious, Additional diagnostics and/or tissue sampling recommended Category 4X: Suspicious, Additional diagnostics and/or tissue sampling recommended Category 0: Recalls (incomplete screen due to Incomplete coverage, Noise, Respiratory motion, Expiration, Obscured by acute abnormality) This document has been electronically signed by: Arnulfo Schneider MD on 12/14/2024 17:27:27
== END 2024-12-14 11:18 | disposition home or self-care (01) ==
LOC: HO.CT 11:17
PROVIDERS: PCP Nurse Practitioner Family; Visit Provider Physician Assistant Medical
DX: Z12.2 Encounter for screening for malignant neoplasm of respiratory organs (principal); F17.210 Nicotine dependence, cigarettes, uncomplicated
CPT/HCPCS: 71271; G0296

== ENCOUNTER → 2024-12-14 11:19 | Outpatient (BNV) | payer OTHER, SELFPAY | PROVIDERS: PCP Nurse Practitioner Family; Visit Provider Specialist | DX: R91.1 Solitary pulmonary nodule (principal); F17.210 Nicotine dependence, cigarettes, uncomplicated | CPT/HCPCS: 71271 ==

== ENCOUNTER 2025-01-15 15:00 | Outpatient (AMB) | payer OTHER, SELFPAY ==
[2025-01-15 15:09] VITALS: BP 128/70; PULSE 90; O2SAT 99; BMI 30.2
--- NOTE | 2025-01-15 15:09 | MHC.OFFVIS ---
Vital Signs 01/15/25 15:09 Height 6 ft 2 in Weight 235 lb BMI 30.2 BP 128/70 Blood Pressure Location Rt brachial Position Sitting Pulse 90 Pulse Source Pulse Oximeter Pulse Oximetry (%) 99 Oxygen Delivery Method Room Air Intake Visit Reasons: Solitary pulmonary nodule Rental Car Porter Required: No Commercial Loan Underwriter: Commercial Loan Underwriter offered & declined Accompanied by: Self / Same As Patient Allergies No Known Allergies Allergy (Verified 01/15/25 15:12) Medication List - Last Reconciled 01/15/25 by Rosaura Raza LPN allopurinol 100 mg PO DAILY losartan 25 mg PO DAILY 90 days HPI HPI Solitary pulmonary nodule: Details: Monica is a pleasant 49 year old male, former smoker with 30+pack year history, now vaping nicotine with underlying gout, HTN and h/o GI bleed. He was referred after review of chest CT for lung screening program. LDCT revealed semisolid left upper lobe lesion with the solid component measuring 0.9 x 0.4 cm as well as two smaller lesions having similar appearance in the right upper and left lower lobes. He denies prior chest CT and this was his first LDCT. He does report intermittent dry cough otherwise denies any respiratory symotoms. He denies h/o asthma or recurrent respiratory infections. He endorses seasonal allergies, no recent allergy testing. He does have a h/o widespread joint pain that has been worsening over the years and h/o safia, PCP had sent for rheumatologic workup however patient never completed labs. He reports father with h/o RA. He denies fever, chills, weight loss or appetite changes. He denies personal history of lung cancer, reports paternal grandmother with h/o lung cancer, unknown smoking history. 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 [facility] Medical History (Updated 01/22/25 @ 08:24 by Yvonne Colvin NP) Elevated TSH High triglycerides Tendinitis of both shoulders Nicotine dependence, cigarettes, uncomplicated Tubular adenoma of colon GI bleed Gout HTN (hypertension) Surgical History (Updated 11/12/24 @ 14:13 by Deonna Gutierrez PA-C) History of colonoscopy Hx of myringotomy Family History Father Family history of mental disorder Social History (Updated 12/14/24 @ 11:17 by Deonna Gutierrez PA-C) Housing: House Patient Tobacco Use Status: Former Tobacco user Tobacco use type: Cigarette Years Smoked: (onset 11yo, 1ppd x 38yrs, 30+PYH, quit 09/2024 -now vape) e-Cigarette/Vaping Use: Never Used service: No Current occupational status: employed Current occupation: [employer], right hand dominant Current occupational exposures/hazards: Yes Cognitive needs: No Hearing needs: No Vision needs: No Review of Systems Const Denies chills, Denies excessive sweating, Denies fever(s), Denies headache(s) and Denies night sweats Eyes Denies dry eyes, Denies irritation and Denies itchy eyes ENT Reports Normal hearing present, Denies headache(s), Denies nasal congestion, Denies nasal discharge, Denies post nasal drip and Denies sore throat Card Denies chest pain, Denies chest pain at rest, Denies chest pain with activity, Denies claudication, Denies leg edema, Denies dyspnea, Denies dyspnea on exertion, Denies orthopnea and Denies paroxysmal nocturnal dyspnea Resp Denies chest congestion, Denies excessive phlegm production, Denies pain on inspiration, Denies pain with cough, Denies dyspnea, Denies dyspnea on exertion, Denies stridor and Denies wheezing Musc Reports arthralgias Neuro Reports Normal hearing present and Denies headache(s) Endo Denies excessive sweating Tyrell/Lymph Denies lymphadenopathy Aller/Immun Denies itchy eyes, Denies seasonal rhinorrhea and Denies wheezing Physical Exam Vital Signs: Last Vital Signs Pulse 90 01/15/25 15:09 BP 128/70 01/15/25 15:09 Pulse Ox 99 01/15/25 15:09 Oxygen Delivery Method Room Air 01/15/25 15:09 BMI result Body Mass Index 30.2 Const General: cooperative, healthy appearing, comfortable, no acute distress, well developed and alert Orientation/consciousness: patient oriented x3 Limitations: no limitations HEENT Head: Yes normal to inspection, Yes normocephalic and Yes atraumatic Ears: hearing grossly normal bilaterally and external ears normal Eyes General: appearance normal, both eyes and all related structures Eyelids: Yes eyelids normal Sclerae: sclerae normal EOM: EOMs intact bilaterally Neck Neck: Yes normal visual inspection and Yes no lymphadenopathy Lymphatic: no lymphadenopathy noted Chest Chest palpation & inspection: normal inspection of the chest Resp Effort & Inspection: normal respiratory effort, able to speak in complete sentences, no audible wheezes, no cough, no stridor, not tachypneic, no tripod positioning and no use of accessory muscles Auscultation: clear to auscultation bilaterally Cardio Jugular venous distension: no JVD Rate: regular rate Rhythm: regular rhythm Skin Other: warm, dry General skin exam: no rashes or lesions noted Neuro General: patient oriented x3 Cranial nerves: Yes Normal hearing present Cognition (Neuro): normal cognition Gait exam (Neuro): Normal gait present Extrem General: Yes normal to inspection, Yes capillary refill normal, Yes no clubbing, cyanosis or edema and Yes no pedal edema Psych Appearance: grossly normal and well kempt Speech and movement: Normal speech and movement present and Clear speech present Affect: normal affect Attitude: cooperative Thought process: Normal thought process present Thought content: Normal thought content present Insight: Good insight present (Psych) Judgement: Good judgement present (Psych) Results Reviewed Results Reviewed: ?Allergies Close CT Lung (Signed) Arnulfo Schneider - 12/14/24 Shoulder X-Ray (Signed) Anrulfo Schneider - 11/02/24 Shoulder X-Ray (Signed) Arnulfo Schneider - 11/02/24 Launch?Image [place] [id number] CT Scan Report Signed Patient: Monica Mora MR#: [id number] : 1975 Acct:[id number] Age/Sex: 49 / M ADM Date: 12/14/24 Loc: HO.CT Attending Dr: Deonna Gutierrez PA-C Ordering Physician: Deonna Gutierrez PA-C Date of Service: 12/14/24 Procedure(s): CT lung screening Accession Number(s): [id number] cc: Arron Mccallum-; Deonna Gutierrez PA-C~ Report Number: [id number]: Total DLP = 64.00 mGy-cm CLINICAL HISTORY: F17.210 - Nicotine dependence, cigarettes, uncomplicated CT lung cancer screening (LDCT) Comparison: None Technique: Axial CT images of the chest using low-dose technique. Referring provider counseled the patient on shared decision-making for LDCT screening. Additional counseling was provided on smoking cessation. Effective radiation dose total: DLP 52.9 mGycm, CTDIvol 1.5 mGy. Findings: Lung: There is a solid/semi solid left upper lobe lesion with the solid component measuring 0.9 x 0.4 cm. There are 2 smaller lesions having similar appearance in the right upper and left lower lobes. No other solid or semi solid lesions Coronary artery calcifications: none Limited upper abdomen: Unremarkable Other: None Impression: Category 3: Probably benign, six-month CT recommended Assessment & Plan Assessment & Plan (1) Pulmonary nodule: Code(s): R91.1 - Solitary pulmonary nodule Category: Medical (2) Nicotine dependence, cigarettes, uncomplicated: Comment: (onset 11yo, 1ppd x 38yrs, 30+PYH, quit 09/2024 -now vape) Code(s): F17.210 - Nicotine dependence, cigarettes, uncomplicated Category: Medical (3) Cough: Code(s): R05.9 - Cough, unspecified Category: Medical Plan Monica presents for pulmonary evaluation after 12/14/24 LDCT revealed solid/semi solid EVELIO lesion, solid component 9x4mm. An order was already placed for 3 month follow up as this was his initial scan. We discussed findings could be an inflammatory in nature given symptoms suggestive of underlying CTD or possibly a result of occupational exposures. Encouraged patient to obtain labs that were ordered by PCP for rheumatologic work up. At this time patient reports intermittent dry cough otherwise denies respiratory symptoms. Will send for PFT for further evaluation. Vaping cessation reviewed. All questions were answered and patient is in agreement of plan. Will follow up to review results or sooner if needed. Orders: Orders PFT pulmonary function test Today R05.9 - Cough, unspecified Coding Level of Care Code New Pt Level 4 (63662) Diagnoses Pulmonary nodule R91.1 Nicotine dependence, cigarettes, uncomplicated F17.210 Cough R05.9
== END 2025-01-15 15:44 | disposition home or self-care (01) ==
LOC: HO.HPSW 15:02
PROVIDERS: PCP Nurse Practitioner Family; Referring Provider Physician Assistant Medical; Visit Provider Nurse Practitioner Family
DX: R91.1 Solitary pulmonary nodule (principal); F17.210 Nicotine dependence, cigarettes, uncomplicated; R05.9 Cough, unspecified
CPT/HCPCS: 99204

== ENCOUNTER 2025-01-15 15:50 | Outpatient (REF) | payer OTHER, SELFPAY ==
[2025-01-15 18:57] LABS: C Reactive Protein 0.21 mg/dL (< or = 0.50); Iron 85 mcg/dL (45-160); Percent Iron Saturation 29 % (15-50); Total Iron Binding Capacity 297 mcg/dL (228-428); Unsaturated Iron Binding 212 ug/dL; Uric Acid 7.5 mg/dL (3.4-7.0)
[2025-01-15 19:05] LABS: Rheumatoid Factor < 13.0 IU/mL (<15.0)
[2025-01-15 19:06] LABS: Prostate Specific Antigen Scr 0.95 ng/mL (<0.05-4.0)
[2025-01-15 19:08] LABS: Ferritin 216 ng/mL (20-250); TSH reflex Free T4 9.53 uIU/mL (0.32-4.0)
[2025-01-15 19:20] LABS: Appearance Urine Clear; Color Urine Yellow; Glucose Urine UA Negative (Negative); Leukocyte Esterase Urine Negative (Negative); Nitrite Urine Negative (Negative); PH 6.5 (5.0-9.0); Specific Gravity - Urine 1.015 (1.005-1.025); Urine Blood Negative (Negative); Urine Ketones Negative (Negative); Urine Protein Negative (Neg-Trace)
[2025-01-15 19:32] LABS: Erythrocyte Sedimentation Rate 7 MM/HR (0-15)
[2025-01-15 19:39] LABS: Free T4 (Free Thyroxine) 0.88 ng/dL (0.71-1.85)
[2025-01-16 21:13] LABS: A. Phagocytphilium DNA,RT-PCR NOT DETECTED (NOT DETECTED); Babesia Microti DNA, RT-PCR NOT DETECTED (NOT DETECTED); Borrelia Miyamotoi,DNA RT-PCR NOT DETECTED (NOT DETECTED); E.Chaffeensis DNA RT-PCR NOT DETECTED (NOT DETECTED); Lyme(Borrelia ssp)DNA RT-PCR NOT DETECTED (NOT DETECTED)
[2025-01-16 21:38] LABS: Thyroid Peroxidase Antibodies 96 IU/mL (<9)
[2025-01-17 11:14] LABS: Cyclic Citrullinated Peptide <16 UNITS
[2025-01-17 21:13] LABS: Anti DNA DS Antibody <1 IU/mL; Antibody to SS-A Antigen <1.0 NEG AI (<1.0 NEG); Antibody to SS-B Antigen <1.0 NEG AI (<1.0 NEG)
[2025-01-19 08:54] LABS: DNAds, Crithidia Antibody Negative (Negative)
[2025-01-21 13:33] LABS: Anti Nuclear Antibody Screen NEGATIVE (NEGATIVE)
== END 2025-01-15 15:51 | disposition home or self-care (01) ==
LOC: HO.WFDLDS 15:50
PROVIDERS: Visit Provider Nurse Practitioner Family
DX: Z00.00 Encounter for general adult medical examination without abnormal findings (principal); R52 Pain, unspecified; E78.1 Pure hyperglyceridemia; R79.89 Other specified abnormal findings of blood chemistry; Z12.5 Encounter for screening for malignant neoplasm of prostate
CPT/HCPCS: 36415; 81003; 82550; 82728; 83540; 84153; 84439; 84443; 84550; 85652; 86038; 86140; 86200; 86225; 86235; 86255; 86376; 86431; 87468; 87469; 87478; 87484; 87798

== ENCOUNTER 2025-03-06 15:34 | Outpatient (REF) | payer OTHER, SELFPAY ==
--- NOTE | 2025-03-06 15:37 | PFT_ITS ---
Flows: FEV1: 104 % of predicted at 4.59 L FVC: 96 % of predicted at 5.47 L FEV1/FVC: 84 % Bronchodilator response: Present in small to medium airways only Volumes: Total lung capacity: 90 % of predicted at 7.35 L Residual volume: 87 % of predicted at 1.88 L Slow vital capacity: 90 % of predicted at 5.47 L Expiratory reserve volume: 55 % of predicted at 0.96 L Diffusion capacity: Mildly decreased, corrects to normal after adjustment for alveolar ventilation. Impression: No obstructive or restrictive ventilatory defect. Bronchodilator response is present in small to medium airways only. Decreased expiratory reserve volume suggests extrathoracic restriction likely secondary to abdominal obesity. Decreased diffusion capacity suggests emphysema. MTDD
[2025-03-06 16:18] VITALS: PULSE 75; O2SAT 97
== END 2025-03-06 15:35 | disposition home or self-care (01) ==
LOC: HO.RESP 15:34
PROVIDERS: PCP Nurse Practitioner Family; Visit Provider Nurse Practitioner Family
DX: R05.9 Cough, unspecified (principal)
CPT/HCPCS: 94010; 94640; 94727; 94729

== ENCOUNTER → 2025-03-06 15:37 | Outpatient (BNV) | payer OTHER, SELFPAY | PROVIDERS: PCP Nurse Practitioner Family; Visit Provider Internal Medicine Pulmonary Disease | DX: R05.9 Cough, unspecified (principal) | CPT/HCPCS: 94060; 94727; 94729 ==

== ENCOUNTER 2025-03-27 15:25 | Outpatient (REF) | payer OTHER, SELFPAY ==
--- NOTE | ~2025-03-27 | CT_ITS ---
CLINICAL HISTORY: R91.1 - Solitary pulmonary nodule --- Additional Notes or Special Instructions: 2 2 8 25 LDCT EVELIO nodule 9x4mm - plan 3m repeat LDCT CT lung cancer screening (LDCT) Comparison: CT/SR - CT LUNG SCREENING - 12/14/24 11:25 EST Technique: Axial CT images of the chest using low-dose technique. Referring provider counseled the patient on shared decision-making for LDCT screening. Additional counseling was provided on smoking cessation. Effective radiation dose total: DLP 52.5 mGycm, CTDIvol 1.6 mGy. Findings: Lung: Previously seen ground-glass nodules within the left lung are no longer present. 4 mm nodule within the medial aspect of the right major fissure ( image 72) is unchanged. No new pulmonary nodules. Coronary artery calcifications: Mild Limited upper abdomen: Unremarkable Other: None Impression: 1. Coronary artery disease. 2. LungRADS 2 - Benign Appearance: Continue annual screening with low dose Chest CT in 12 months. ##L2## Category 1: Normal; continue annual screening Category 2: Benign appearance or behavior, continue annual screening Category 3: Probably benign, [address] recommended Category 4A: Suspicious, [address] recommended; may consider PET/CT Category 4B: Suspicious, Additional diagnostics and/or tissue sampling recommended Category 4X: Suspicious, Additional diagnostics and/or tissue sampling recommended Category 0: Recalls (incomplete screen due to Incomplete coverage, Noise, Respiratory motion, Expiration, Obscured by acute abnormality) This document has been electronically signed by: Jerad Mendoza MD on 03/28/2025 13:29:48
== END 2025-03-27 15:26 | disposition home or self-care (01) ==
LOC: HO.CT 15:25
PROVIDERS: PCP Nurse Practitioner Family; Visit Provider Physician Assistant Medical
DX: R91.1 Solitary pulmonary nodule (principal)
CPT/HCPCS: 71250

== ENCOUNTER → 2025-03-27 15:26 | Outpatient (BNV) | payer OTHER, SELFPAY | PROVIDERS: PCP Nurse Practitioner Family; Visit Provider Radiology Diagnostic Radiology | DX: I25.10 Atherosclerotic heart disease of native coronary artery without angina pectoris (principal) | CPT/HCPCS: 71250 ==

== ENCOUNTER 2025-09-25 14:23 | Outpatient (AMB) | payer OTHER, SELFPAY ==
[2025-09-25 14:49] VITALS: BP 142/80; PULSE 77; RESP 16; O2SAT 99; BMI 29.8
--- NOTE | 2025-09-25 14:49 | A.OFFPC_ITS ---
Vital Signs 09/25/25 14:49 Height 6 ft 2 in Weight 232 lb BMI 29.8 BP 142/80 H Blood Pressure Location Rt brachial Position Sitting Respiration 16 Pulse 77 Pulse Source Pulse Oximeter Pulse Oximetry (%) 99 Oxygen Delivery Method Room Air Intake Visit Reasons: Annual PE -inactive INS...see comments Hr Administrative Assistant Required: No Accompanied by: Self / Same As Patient Allergies No Known Allergies Allergy (Verified 01/15/25 15:12) Tobacco use date assessed: 12/07/23 Dental Screening Dental Screen Date: 12/07/23 HPI Annual PE -inactive INS...see comments HPI Details History of Present Illness The patient is a 50 year old male presenting for a physical exam. He reports doing quite well overall but has been off his blood pressure and thyroid medications for some time. His colon cancer screening is up-to-date. Health Maintenance The patient's colon cancer screening is up-to-date. He declined the influenza vaccination today. Social History Review of Systems - Constitutional: Reports doing quite we ll overall. - Cardiovascular: Denies chest pain or s hortness of breath. - Gastrointestinal: Denies abdominal lissette n, hematochezia, constipation, or diarrhea. - Psychiatric: Denies suicidal or homici mikel ideation. Physical Exam General: Cooperative, healthy appearing, comfortable, no acute distress and well developed Orientation: Patient oriented x3 Limitations: No limitations Head: Normal to inspection Ears: Hearing grossly normal bilaterally Nose: Normal external nose present Face and sinus: Normal facial exam Eyes: Appearance normal, both eyes and all related structures Neck: Normal visual inspection and Yes full ROM Respiratory: Normal respiratory effort and able to speak in complete sentences. Clear to auscultation bilaterally Cardiovascular: Regular rate and rhythm. Normal S1 and S2 GI: Normal to inspection. Soft to palpation and nontender : testicles without masses/lesions and no hernias appreciated (vitiligo noted) Skin: No rashes or lesions noted Neuro: Patient oriented x3 Extremities: Normal to inspection Results Plan 1. Physical Examination The patient presented for a routine physical exam and is doing well. 2. Hypertension The patient has been non-adherent with his blood pressure medication for some time. His blood pressure medication will be restarted. 3. Hypothyroidism The patient has been non-adherent with his thyroid medication for some time. The thyroid medication will be restarted. Labs will be checked in two months, and the patient understands the need to fast. Discussion Notes I discussed restarting the patient's blood pressure and thyroid medications, as he has been off them for some time. I will have him follow up for labs in approximately two months to monitor his thyroid levels, and he confirmed he knows to fast for these labs. The patient declined a flu vaccination during this visit. Patient Instructions - You will start taking your blood press ure and thyroid medications again as prescribed. - Please get bloodwork done in about two months. - You will need to fast before your bloo d tests. [facility] Medical History Elevated TSH High triglycerides Tendinitis of both shoulders Nicotine dependence, cigarettes, uncomplicated Tubular adenoma of colon GI bleed Gout HTN (hypertension) Surgical History History of colonoscopy Hx of myringotomy Family History Father Family history of mental disorder Social History Housing: House Patient Tobacco Use Status: Former Tobacco user Tobacco use type: Cigarette Years Smoked: (onset 11yo, 1ppd x 38yrs, 30+PYH, quit 09/2024 -now vape) e-Cigarette/Vaping Use: Never Used service: No Current occupational status: employed Current occupation: [employer], right hand dominant Current occupational exposures/hazards: Yes Cognitive needs: No Hearing needs: No Vision needs: No Questionnaire PHQ-9 Over the last 2 weeks, how often have you been bothered by any of the following problems? 1. Little interest or pleasure in doing things: not at all 2. Feeling down, depressed, or hopeless: not at all 3. Trouble falling or staying asleep, or sleeping too much: more than half the days 4. Feeling tired or having little energy: not at all 5. Poor appetite or overeating: not at all 6. Feeling bad about yourself - or that you are a failure or have let yourself or your family down: not at all 7. Trouble concentrating on things, such as reading the newspaper or watching television: not at all 8. Moving or speaking so slowly that other people could have noticed. Or the opposite - being so fidgety or restless that you have been moving around a lot more than usual: not at all 9. Thoughts that you would be better off or of hurting yourself in some way: not at all Total score: 2 Source: Developed by Drs. Dong Smith, Cesilia Roman, Weston Jones and colleagues, with an educational suzanne from [employer]. Thrive Questionnaire Date Thrive assessed: 09/25/25 I am a: Patient What is your living situation today?: I have a steady place to live Within the past 12 months, did the food you bought not last and you didn't have the money to get more?: Never true Within the past 12 months, did you worry whether your food would run out before you got money to buy more?: Never true Do you have trouble paying for medicines?: Yes Do you have trouble getting transportation to medical appointments?: No Do you have trouble paying your heating and electricity bill?: Yes Do you have trouble taking care of your child, family member or friend?: No Do you have trouble with day-to-day activities such as bathing, preparing meals, shopping, managing finances, etc.?: No Are you currently unemployed and looking for a job?: No Are you interested in more education?: Yes Please select the resources that you would like help with: None Currently or been in a relationship where the following occur: No concerns reported THRIVE Score: 1 AUDIT C Alcohol Use Questionnaire (AUDIT-C) 1. How often do you have a drink containing alcohol?: 2-3 times a week 2. How many drinks containing alcohol do you have on a typical day when you are drinking?: 3 or 4 3. How often do you have six or more drinks on one occasion?: Weekly Total Score: 7 DONNA-7 AMB Questionnaire DONNA-7 Date DONNA - 7 assessed: 09/24/24 Feeling nervous, anxious, or on edge: 0 = Not at all Not being able to stop or control worryin = Not at all Worrying too much about different things: 0 = Not at all Trouble relaxin = Not at all Being so restless that it is hard to sit still: 0 = Not at all Becoming easily annoyed or irritable: 0 = Not at all Feeling afraid as if something awful might happen: 0 = Not at all Total DONNA-7 score (0-4 normal; 5-9 mild; 10-14 moderate; 15-21 severe): 0 Source: Developed by Drs. Dong Smith, Cesilia Roman, Weston Jones and colleagues, with an educational suzanne from [employer]. Physical exam (Primary Care) Vital Signs: Last Vital Signs Pulse 77 09/25/25 14:49 Resp 16 09/25/25 14:49 BP 142/80 H 09/25/25 14:49 Pulse Ox 99 09/25/25 14:49 Oxygen Delivery Method Room Air 09/25/25 14:49 BMI result Body Mass Index 29.8 Tobacco/Smoking Status: Tobacco use Status Tobacco use date assessed 12/07/23 09/25/25 14:51 Patient Tobacco Use Status Former Tobacco user 09/25/25 14:51 Tobacco use type Cigarette 09/25/25 14:51 e-Cigarette/Vaping Use Never Used 09/25/25 14:51 PHQ-9: PHQ-9 Score PHQ-9: Total score 2 09/25/25 14:51 Thrive Assessment: Date of Thrive Assessment Date Thrive assessed 09/25/25 09/25/25 14:51 Currently or been in a relationship where the following occur: No concerns reported Coding Level of Care Code Est Pt Prev Care 40-64y(38443) Diagnoses HTN (hypertension) I10 Elevated TSH R79.89 Encounter for routine adult physical exam with abnormal findings Assessment & Plan Assessment & Plan (1) HTN (hypertension): Code(s): I10 - Essential (primary) hypertension Category: Medical (2) Elevated TSH: Code(s): R79.89 - Other specified abnormal findings of blood chemistry Category: Medical (3) Encounter for routine adult physical exam with abnormal findings: Code(s): Z. - Encounter for general adult medical examination with abnormal findings Category: Medical Plan . Medications: Refilled levothyroxine (Synthroid) 25 mcg PO DAILY 90 tabs 1RF losartan 25 mg PO DAILY 90 tabs 1RF 90 days allopurinol 200 mg (2 x 100 mg) PO DAILY 90 tabs 1RF
== END 2025-09-25 15:24 | disposition home or self-care (01) ==
PROVIDERS: PCP Nurse Practitioner Family; Visit Provider Nurse Practitioner Family
DX: I10 Essential (primary) hypertension (principal); R79.89 Other specified abnormal findings of blood chemistry; Z00.01 Encounter for general adult medical examination with abnormal findings